=== PATIENT | male | born 1940 | race American Indian/Alaskan Native ===

== ENCOUNTER 2021-04-26 07:01 | Day surgery (SDC) | payer MEDICARE ==
[~2021-04-26 07:01] MED LIST: SODIUM CHLORIDE 0.9% 1000 ML 1,000 ML IV SCH
[2021-04-26] MEDS ORDERED: LIDOCAINE MPF (2%) 20 MG/1 ML VIAL 5 ML ONE (07:52)
[2021-04-26] MEDS ORDERED: propofoL 200 MG/20 ML VIAL IV ONE (07:52)
--- NOTE | 2021-04-26 07:58 | Anesthesia Consultation ---
Anesthesia Consult and Med Hx - Airway Anesthetic Teeth Evaluation: Good, Partials (lower) ROM Head & Neck: Adequate Mental/Hyoid Distance: Adequate Mallampati Class: Class I Intubation Access Assessment: Good - Pulmonary Exam CTA: Yes - Cardiac Exam Cardiac Exam: RRR - Pre-Operative Health Status ASA Pre-Surgery Classification: ASA3 Proposed Anesthetic Plan: MAC - Pulmonary Hx Smoking: No Hx Asthma: No Hx Sleep Apnea: No - Cardiovascular System Hx Hypertension: Yes Hx Coronary Artery Disease: No Hx Heart Attack/AMI: No Hx Cardia Arrhythmia: Yes (Paroxysmal Afib) - Central Nervous System Hx Neuromuscular Disorder: No - Gastrointestinal Hx Gastroesophageal Reflux Disease: No (ulcerative colitis) - Endocrine Hx Renal Disease: No Hx Cirrhosis: No Hx Non-Insulin Dependent Diabetes: No Hx Thyroid Disease: No - Hematic Hx Anemia: No Hx Sickle Cell Disease: No - Other Systems Hx Alcohol Use: No Hx Substance Use: No Hx Cancer: No Hx Obesity: No - Additional Comments Anesthesia Medical History Comments: No hx of anesthetic complications.
--- NOTE | 2021-04-26 07:59 | Anesthesia Day of Surgery ---
Anesthesia Day of Surgery - Day of Surgery Patient Examined: Yes Patient H&P Reviewed: Yes Patient is NPO: Yes Cardiac Clearance: Yes (To be sent from [place] office)
--- NOTE | 2021-04-26 09:11 | Short Stay Summary ---
Short Stay Documentation Date of service: 04/26/21 Narrative H&P: The patient presents for surveillance colonoscopy for ulcerative fatima colitis and history of colon polyps. - History Past Medical History: hypertension Past Surgical History: bowel surgery Social history: no significant social history, lives with family - Allergies and Medications Current Medications: Allergies No Known Allergies Allergy (Unverified 04/25/21 11:58) Home Medications Medication Instructions Recorded Confirmed Last Taken Type Benicar 40 mg PO DAILY 04/25/21 04/25/21 Unknown History Digoxin 125 mcg PO DAILY 04/25/21 04/25/21 Unknown History Mesalamine 400 mg PO TID 04/25/21 04/25/21 Unknown History Tamsulosin 0.4 mg PO DAILY 04/25/21 04/25/21 Unknown History clonazePAM 0.5 mg PO HS 04/25/21 04/25/21 Unknown History Active Medications Sodium Chloride (Nacl 0.9% 1000 Ml) 1,000 mls @ 50 mls/hr IV DIRECT MIQUEL - Physical exam General appearance: no acute distress, well-nourished Integumentary: no rash, no growths, no abnormal pigmentation HEENT: Atraumatic, PERRLA, EOMI, Mucous membr. moist/pink Lungs: Clear to auscultation Breasts: deferred Heart: Regular rate, Normal S1, Normal S2, No murmurs Gastrointestinal: normoactive bowel sounds, no tenderness, no distended, no masses, no guarding, no hepatomegaly, no splenomegaly, no obese Male Genitourinary: deferred Rectal Exam: normal exam-external/orifice, normal rectal tone, no mass Extremities: no ischemia, pulses intact, pulses symmetrical, No edema, normal temperature, normal color, Full ROM Neurological: Normal gait, Normal speech, Strength at 5/5 X4 ext, Normal tone, S ensation intact, Cranial nerves 3-12 NL - Brief post op/procedure progress note Date of procedure: 04/26/21 Procedure: see dictation Estimated blood loss: none Pathology: list (1. random right colon biopsies for dysplasia 2. ascending colon polyp 3. random left colon biopsies for dysplasia.) Specimen disposition: to lab Condition: stable - Disposition Condition at discharge: Good Disposition: 01 HOME / SELF CARE / HOMELESS - Discharge Diagnoses (1) Ulcerative pancolitis Status: Acute (2) History of colon polyps Status: Acute Short Stay Discharge Plan Activity: advance as tolerated, other (no driving for 24 hours.) Weight Bearing Status: Full Weight Bearing Diet: regular Follow up with: TANG BENAVIDES DO [Primary Care Provider] - 7 Days
--- NOTE | 2021-04-26 09:16 | Operative Report ---
Operative Report Operative Report: Date of procedure: 04/26/2021 Preprocedure diagnosis: Surveillance colonoscopy for history of ulcerative panc olitis and a history of adenomatous colon polyps. Last colonoscopy over 4 years ago. Colitis present since 2006. Post procedure diagnosis: Mild to moderate ulcerative colitis. Sessile ascending colon polyp. Procedure: Colonoscopy to the cecum with random biopsies of the right colon, random biopsies of the left colon and cold snare polypectomy. Endoscopist: Dr. Carpenter Anesthesia: Monitored anesthesia care per anesthesia department Estimated blood loss: 0 Medications: Monitored anesthesia care. See separate report by anesthesia for details. After careful discussion of the nature and purpose of the procedure as well as details of the technique risks benefits and alternatives the patient gave consent. Please see recent history and physical from the office. The patient was placed in the left lateral decubitus position and medicated per anesthesia. A rectal exam was performed sphincter tone was normal there were no masses palpable. The [employer]ono[employer] 570 scope was passed transanally and advanced under continuous direct vision without difficulty to the cecum. The colon was well prepared. The cecum was normal. The ascending colon revealed mild patchy colitis and a 6 mm sessile colon polyp. The polyp was removed with cold snare resection completely and retrieved by suction. The transverse colon, descending colon, and sigmoid colon revealed mild to moderate inflammation consistent with known ulcerative colitis. The rectum revealed minimal inflammation and was otherwise normal on forward and retroflexed views. Multiple random biopsies were taken from the right colon and subsequently the left colon to be submitted in separate jars for dysplasia. The procedure was well-tolerated overall and the patient was observed in recovery. Conclusions: Overall mild to moderate inflammation of the colon. 6 mm ascending colon polyp. Plan: Await pathology for dysplasia. Future colonoscopy will depend on the patient's overall health and the results of the present biopsies. Signed electronically: Todd Carpenter M.D.
[2021-04-26 10:28] VITALS: BP 118/77
--- NOTE | 2021-04-26 13:40 | Post Anesthesia Evaluation ---
- Post Anesthesia Evaluation Patient Participated: Yes Airway Patent: Yes Stable Respiratory Function: Yes Nausea/Vomiting: No Temp > 96.8F: Yes Pain Manageable: Yes Adequeate Hydration: Yes Anesthesia Complications: No
== END 2021-04-26 09:55 | disposition home or self-care (01) ==
LOC: GIO 07:01
PROVIDERS: ATTEND Internal Medicine Gastroenterology
DX: K51.00 Ulcerative (chronic) pancolitis without complications (principal); K63.89 Other specified diseases of intestine; D12.2 Benign neoplasm of ascending colon; I48.0 Paroxysmal atrial fibrillation; M19.90 Unspecified osteoarthritis, unspecified site; F41.9 Anxiety disorder, unspecified; F32.9 Major depressive disorder, single episode, unspecified; Z86.010 Personal history of colon polyps; Z79.899 Other long term (current) drug therapy; Z98.890 Other specified postprocedural states
CPT/HCPCS: 45380; 45385; 88305; J2704; J3490; J7030; J7120; Q0162